=== PATIENT | female | born 1965 | race African-American/Black ===

== ENCOUNTER 2020-08-26 09:32 | Inpatient (IN) ==
[2020-08-26] MEDS ORDERED: SODIUM CHLORIDE 0.9% 1,000 ML IV STA ×2 (10:06→11:21)
[2020-08-26 10:14] LABS: Basophils % 0.3 % (0.0-0.8); Hematocrit 49.7 VOL% (35.7-47.0); Hemoglobin 15.9 GM/DL (12.0-16.0); Immature Granulocytes % 0.8 %; Immature Granulocytes Absolute 0.11 #; Lymphocytes # 0.7 10*3/uL (1.4-4.0); Lymphocytes % 5.7 % (21.3-54.2); Mean Corpuscular Volume 80.6 FL (87-102); Mean Platelet Volume 8.9 FL (9.6-12.0); Monocytes % 8.2 % (1.7-12.7); NRBC # 0.03 10*3/uL; Platelet Count 327 T/CUMM (130-400); Red Blood Count 6.17 MC/CUMM (3.8-5.5); Red Cell Distribution Width 14.1 % (9.3-17.3)
[2020-08-26 10:39] LABS: Alanine Aminotransferase 21 U/L (13-56); Albumin 4.3 G/DL (3.4-5.0); Alkaline Phosphatase 166 U/L (45-117); Aspartate Amino Transferase 8 U/L (0-37); Blood Urea Nitrogen 46 MG/DL (7-18); Calcium 9.4 MG/DL (8.5-10.1); Estimated Glom Filtration Rate 39 ML/MIN; Osmolality,Calculated 302.4 MOS/KG (273-304); Total Protein 8.5 G/DL (6.4-8.3)
[2020-08-26] MEDS ORDERED: INSULIN REGULAR 100 UNIT/ML IV ONE (10:39)
[2020-08-26 10:41] LABS: Glucose 554 MG/DL (74-106)
[2020-08-26 10:56] LABS: Amorphous Crystals,Urine Occasional /HPF (Few); Bilirubin,Urine Negative (Negative); Blood, Urine Moderate mg/dL (Negative); Glucose,Urine (UA) >=500 mg/dL (Negative); Hyaline Casts,Urine 1 /LPF (0-3); Ketones,Urine 80 mg/dL (Negative); Mucus,Urine Occasional /LPF (Occasional); Nitrite,Urine Negative (Negative); Protein,Urine 30 MG/DL; RBC,Urine <1 /HPF (0-4); Squamous Epithelial Cell,Urine Occasional /HPF (0-10); Urine Appearance Slightly Hazy (Clear); Urine Color Yellow (Yellow); Urine Specific Gravity 1.017 (1.001-1.035); Urine Urobilinogen < 2.0 EU/DL (0.2-1.0)
[2020-08-26] MEDS ORDERED: ALBUTEROL 2.5 MG/3 ML NEB RESP TX PRN (12:29)
[2020-08-26] MEDS ORDERED: FAMOTIDINE 20 MG/2 ML VIAL IV SCH (12:30)
[2020-08-26] MEDS ORDERED: SODIUM CHLORIDE 0.9% IV PRN (12:31)
[2020-08-26] MEDS ORDERED: MAGNESIUM SULF RIDER 4 GM in PREMIX 1 EACH IV PRN (12:31)
[2020-08-26] MEDS ORDERED: SODIUM CHLORIDE 0.9% 1,000 ML IV ONE (12:31)
[2020-08-26] MEDS ORDERED: MAGNESIUM SULF RIDER 2 GM in PREMIX 1 EACH IV PRN (12:31)
[2020-08-26] MEDS ORDERED: SODIUM BICARB INJ 100 MEQ in STERILE WATER INJ 400 ML IV PRN (12:31)
[2020-08-26] MEDS ORDERED: SODIUM PHOSPHATE IV PRN (12:31)
[2020-08-26] MEDS ORDERED: DEXTROSE 50% 25 GM/50 ML VIAL IV PRN ×2 (12:31)
[2020-08-26 12:51] LABS: ABG Base Excess -25.2 MMOL/L (-2.5-2.5); ABG HCO3 7.8 MMOL/L (20-26); ABG Oxygen Saturation 98.8 % (95-100); ABG TCO2 3.7 MMOL/L (23-27)
[2020-08-26 12:53] LABS: ABG PCO2 12.5 MM HG (35-48); ABG PH 7.119 (7.35-7.45)
[2020-08-26 13:08] LABS: Ferritin 1015.2 ng/ml (8-252)
[2020-08-26] MEDS ORDERED: INSULIN REGULAR DRIP 100 ML IV SCH (13:30)
[2020-08-26] MEDS: ENOXAPARIN 40 MG/0.4 ML SYRINGE SUBCUT SCH (13:37)
[2020-08-26] MEDS: metroNIDAZOLE INJ 500 MG in PREMIX 1 EACH IV SCH (13:43)
[2020-08-26] MEDS: SODIUM CHLORIDE 0.9% 1,000 ML IV SCH ×2 (13:44→15:39)
[2020-08-26 13:48] LABS: Calcium 8.8 MG/DL (8.5-10.1)
[2020-08-26] MEDS ORDERED: cefTRIAXone 1,000 MG in SYRINGE 1 EACH IV SCH (14:00)
[2020-08-26 15:25] LABS: ABG Oxygen Saturation 98.3 % (95-100)
[2020-08-26 15:28] LABS: ABG PCO2 11.2 MM HG (35-48); ABG PH 7.078 (7.35-7.45)
[2020-08-26] MEDS ORDERED: SODIUM CHLORIDE 0.9% 1,000 ML IV SCH (15:30)
[2020-08-26] MEDS ORDERED: SODIUM BICARBONATE 10 MEQ/10 ML SYRINGE IV ONE (15:41)
[2020-08-26] MEDS ORDERED: SODIUM BICARBONATE 50 MEQ/50 ML VIAL IV ONE (15:45)
[2020-08-26] MEDS ORDERED: SODIUM BICARB INJ 50 MEQ in SODIUM CHLORIDE 0.45% 1,000 ML IV SCH (16:30)
[2020-08-26 17:21] LABS: ABG Base Excess -18.5 MMOL/L (-2.5-2.5); ABG HCO3 11.2 MMOL/L (20-26); ABG Oxygen Saturation 99.3 % (95-100); ABG TCO2 6.5 MMOL/L (23-27); Allen Test Positive; Pt O2 Delivery Device Room Air
[2020-08-26 17:26] LABS: ABG PH 7.262 (7.35-7.45)
[2020-08-26 17:27] LABS: ABG PCO2 16.3 MM HG (35-48)
[2020-08-26 17:37] LABS: Calcium 8.4 MG/DL (8.5-10.1); Osmolality,Calculated 303.8 MOS/KG (273-304)
[2020-08-26 20:14] LABS: ABG HCO3 17.3 MMOL/L (20-26); ABG Oxygen Saturation 99.1 % (95-100); ABG PCO2 26.4 MM HG (35-48); ABG PH 7.362 (7.35-7.45); ABG TCO2 13.1 MMOL/L (23-27)
[2020-08-26] MEDS: ASCORBIC ACID 500 MG TABLET PO SCH (20:50)
[2020-08-26 21:20] LABS: Calcium 8.6 MG/DL (8.5-10.1); Osmolality,Calculated 297.4 MOS/KG (273-304)
[2020-08-27] MEDS: metroNIDAZOLE INJ 500 MG in PREMIX 1 EACH IV SCH ×2 (02:54→12:15)
[2020-08-27 03:23] LABS: Basophils % 0.1 % (0.0-0.8); Hematocrit 38.4 VOL% (35.7-47.0); Hemoglobin 12.8 GM/DL (12.0-16.0); Immature Granulocytes % 0.4 %; Immature Granulocytes Absolute 0.04 #; Lymphocytes # 1.2 10*3/uL (1.4-4.0); Lymphocytes % 11.6 % (21.3-54.2); Mean Corpuscular HGB Conc 33.3 GM/DL (32-36); Mean Corpuscular Volume 77.6 FL (87-102); Mean Platelet Volume 9.2 FL (9.6-12.0); Monocytes % 13.6 % (1.7-12.7); Neutrophils % 74.3 % (38.7-73.9); Platelet Count 246 T/CUMM (130-400); Red Blood Count 4.95 MC/CUMM (3.8-5.5); Red Cell Distribution Width 13.8 % (9.3-17.3); White Blood Count 10.7 T/CUMM (4-12)
[2020-08-27 04:00] LABS: Albumin 3.3 G/DL (3.4-5.0); Bilirubin,Total 0.7 MG/DL (0.2-1.0); Calcium 8.7 MG/DL (8.5-10.1); Osmolality,Calculated 300.8 MOS/KG (273-304); Total Protein 6.6 G/DL (6.4-8.3)
[2020-08-27 04:49] LABS: ABG Base Excess -16.3 MMOL/L (-2.5-2.5); ABG Oxygen Saturation 98.1 % (95-100); ABG PH 7.281 (7.35-7.45); ABG PO2 113.8 MM HG (80-95); ABG TCO2 8.5 MMOL/L (23-27)
[2020-08-27 04:51] LABS: ABG PCO2 17.3 MM HG (35-48)
[2020-08-27] MEDS ORDERED: INSULIN REGULAR DRIP 100 ML IV STA (04:54)
[2020-08-27] MEDS: INSULIN REGULAR DRIP 100 ML IV SCH ×2 (05:09→10:22)
[2020-08-27] MEDS ORDERED: SODIUM CHLORIDE 0.45% 1,000 ML IV SCH (05:32)
[2020-08-27] MEDS ORDERED: LACTATED RINGERS 2,000 ML IV ONE (07:44)
[2020-08-27 08:41] LABS: Calcium 9.2 MG/DL (8.5-10.1); Osmolality,Calculated 306.1 MOS/KG (273-304)
[2020-08-27] MEDS: DEXTROSE 5% NACL 0.45% 1,000 ML IV SCH ×2 (09:23→19:35)
[2020-08-27] MEDS ORDERED: DEXTROSE 5% NACL 0.45% 1,000 ML IV SCH (09:30)
[2020-08-27] MEDS ORDERED: DEXTROSE 5% NACL 0.9% 1,000 ML IV SCH (09:30)
[2020-08-27] MEDS ORDERED: POTASSIUM PHOSPHATE 30 MMOL in SODIUM CHLORIDE 0.9% 250 ML IV ONE (10:00)
[2020-08-27] MEDS: AZITHROMYCIN 250 MG TABLET PO SCH (10:10)
[2020-08-27] MEDS: ASCORBIC ACID 500 MG TABLET PO SCH ×2 (10:10→21:30)
[2020-08-27] MEDS: FAMOTIDINE 20 MG/2 ML VIAL IV SCH (10:10)
[2020-08-27] MEDS: CHOLECALCIFEROL 1,000 UNIT TABLET PO SCH (10:10)
[2020-08-27] MEDS: ZINC GLUCONATE 50 MG TABLET PO SCH (10:10)
[2020-08-27] MEDS: POTASSIUM CHLORIDE RIDER 10 MEQ in PREMIX 1 EACH IV PRN ×4 (10:30→14:25)
[2020-08-27 12:03] LABS: Calcium 8.7 MG/DL (8.5-10.1); Osmolality,Calculated 300.3 MOS/KG (273-304)
[2020-08-27] MEDS: ENOXAPARIN 40 MG/0.4 ML SYRINGE SUBCUT SCH (12:13)
[2020-08-27] MEDS: ONDANSETRON 4 MG/2 ML VIAL IV PRN ×2 (13:10→14:51)
[2020-08-27] MEDS ORDERED: PROMETHAZINE 25 MG TABLET PO PRN (14:43)
[2020-08-27] MEDS ORDERED: cefTRIAXone 1,000 MG in SYRINGE 1 EACH IV SCH (15:00)
[2020-08-27 15:35] LABS: Calcium 8.5 MG/DL (8.5-10.1); Osmolality,Calculated 290.8 MOS/KG (273-304)
[2020-08-27] MEDS ORDERED: ONDANSETRON 4 MG/2 ML VIAL IV ONE (16:47)
[2020-08-27 19:45] LABS: Calcium 8.4 MG/DL (8.5-10.1)
[2020-08-28 00:03] LABS: Calcium 8.8 MG/DL (8.5-10.1); Osmolality,Calculated 288.8 MOS/KG (273-304)
[2020-08-28] MEDS: POTASSIUM CHLORIDE RIDER 10 MEQ in PREMIX 1 EACH IV PRN ×7 (00:20→11:41)
[2020-08-28] MEDS: metroNIDAZOLE INJ 500 MG in PREMIX 1 EACH IV SCH ×2 (00:41→13:36)
[2020-08-28] MEDS: DEXTROSE 5% NACL 0.45% 1,000 ML IV SCH (05:58)
[2020-08-28] MEDS: INSULIN REGULAR DRIP 100 ML IV SCH (05:58)
[2020-08-28 06:35] LABS: Calcium 8.5 MG/DL (8.5-10.1)
[2020-08-28] MEDS ORDERED: POTASSIUM CHLORIDE 20 MEQ/15 ML UDCUP PER TUBE PRN (07:15)
[2020-08-28] MEDS: FAMOTIDINE 20 MG/2 ML VIAL IV SCH (09:38)
[2020-08-28] MEDS: ONDANSETRON 4 MG/2 ML VIAL IV PRN (10:22)
[2020-08-28] MEDS: ZINC GLUCONATE 50 MG TABLET PO SCH (10:22)
[2020-08-28] MEDS: CHOLECALCIFEROL 1,000 UNIT TABLET PO SCH (10:22)
[2020-08-28] MEDS: AZITHROMYCIN 250 MG TABLET PO SCH (10:23)
[2020-08-28] MEDS: ASCORBIC ACID 500 MG TABLET PO SCH ×2 (10:23→21:20)
[2020-08-28 13:03] LABS: Calcium 8.5 MG/DL (8.5-10.1); Osmolality,Calculated 282.3 MOS/KG (273-304)
[2020-08-28] MEDS ORDERED: DEXTROSE 50% 25 GM/50 ML VIAL IV PRN ×2 (13:26→13:27)
[2020-08-28] MEDS ORDERED: GLUCAGON 1 MG VIAL IM PRN ×2 (13:26→13:27)
[2020-08-28] MEDS: ENOXAPARIN 40 MG/0.4 ML SYRINGE SUBCUT SCH (13:37)
[2020-08-28] MEDS: INSULIN GLARGINE 100 UNIT/ML SUBCUT SCH ×2 (13:41→21:20)
[2020-08-28] MEDS ORDERED: POTASSIUM CHLORIDE 20 MEQ TABLET PO ONE (13:52)
[2020-08-28] MEDS: SODIUM CHLORIDE 0.9% 1,000 ML IV SCH (13:52)
[2020-08-28] MEDS ORDERED: MAGNESIUM SULF RIDER 2 GM in PREMIX 1 EACH IV ONE (13:53)
[2020-08-28] MEDS: AMOXICILLIN/CLAV 875 MG TABLET PO SCH (14:59)
[2020-08-28] MEDS: POTASSIUM CHLORIDE 20 MEQ TABLET PO PRN ×3 (15:00→21:21)
[2020-08-28] MEDS: INSULIN REGULAR 100 UNIT/ML SUBCUT SCH ×2 (17:20→21:20)
[2020-08-29] MEDS: AMOXICILLIN/CLAV 875 MG TABLET PO SCH ×2 (02:35→13:52)
[2020-08-29] MEDS: SODIUM CHLORIDE 0.9% 1,000 ML IV SCH ×2 (04:14→20:45)
[2020-08-29] MEDS: INSULIN REGULAR 100 UNIT/ML SUBCUT SCH ×4 (09:35→20:40)
[2020-08-29] MEDS: INSULIN GLARGINE 100 UNIT/ML SUBCUT SCH ×2 (09:35→20:40)
[2020-08-29] MEDS: ZINC GLUCONATE 50 MG TABLET PO SCH (09:36)
[2020-08-29] MEDS: CHOLECALCIFEROL 1,000 UNIT TABLET PO SCH (09:36)
[2020-08-29] MEDS: ASCORBIC ACID 500 MG TABLET PO SCH ×2 (09:37→20:39)
[2020-08-29] MEDS: FAMOTIDINE 20 MG/2 ML VIAL IV SCH (09:37)
[2020-08-29 10:26] LABS: Basophils % 0.3 % (0.0-0.8); Eosinophils % 0.3 % (0.00-10.9); Hemoglobin 11.9 GM/DL (12.0-16.0); Immature Granulocytes % 0.5 %; Immature Granulocytes Absolute 0.04 #; Lymphocytes # 1.8 10*3/uL (1.4-4.0); Mean Corpuscular Volume 76.9 FL (87-102); Monocytes % 9.7 % (1.7-12.7); Neutrophils % 69.2 % (38.7-73.9); Platelet Count 191 T/CUMM (130-400); Red Blood Count 4.55 MC/CUMM (3.8-5.5); White Blood Count 8.8 T/CUMM (4-12)
[2020-08-29 10:38] LABS: Calcium 8.6 MG/DL (8.5-10.1); Osmolality,Calculated 282.5 MOS/KG (273-304)
[2020-08-29] MEDS: ENOXAPARIN 40 MG/0.4 ML SYRINGE SUBCUT SCH (12:59)
[2020-08-29] MEDS: metFORMIN 500 MG TABLET PO SCH ×2 (13:52→20:39)
[2020-08-29] MEDS: ACETAMINOPHEN 325 MG TABLET PO PRN ×2 (16:50→20:44)
[2020-08-30] MEDS: AMOXICILLIN/CLAV 875 MG TABLET PO SCH (01:37)
[2020-08-30 06:12] LABS: Basophils % 0.3 % (0.0-0.8); Eosinophils # 0.1 10*3/uL (0.0-0.87); Eosinophils % 0.9 % (0.00-10.9); Hematocrit 30.8 VOL% (35.7-47.0); Hemoglobin 10.5 GM/DL (12.0-16.0); Immature Granulocytes % 0.7 %; Immature Granulocytes Absolute 0.05 #; Lymphocytes # 1.8 10*3/uL (1.4-4.0); Lymphocytes % 24.2 % (21.3-54.2); Mean Corpuscular HGB Conc 34.1 GM/DL (32-36); Mean Platelet Volume 10.3 FL (9.6-12.0); Monocytes % 10.4 % (1.7-12.7); Neutrophils % 63.5 % (38.7-73.9); Platelet Count 181 T/CUMM (130-400); Red Cell Distribution Width 13.8 % (9.3-17.3); White Blood Count 7.6 T/CUMM (4-12)
[2020-08-30 06:32] LABS: Calcium 8.6 MG/DL (8.5-10.1); Osmolality,Calculated 279.4 MOS/KG (273-304)
[2020-08-30] MEDS: INSULIN REGULAR 100 UNIT/ML SUBCUT SCH ×2 (08:20→12:41)
[2020-08-30] MEDS: metFORMIN 500 MG TABLET PO SCH (09:50)
[2020-08-30] MEDS: ASCORBIC ACID 500 MG TABLET PO SCH (09:50)
[2020-08-30] MEDS: CHOLECALCIFEROL 1,000 UNIT TABLET PO SCH (09:50)
[2020-08-30] MEDS: FAMOTIDINE 20 MG/2 ML VIAL IV SCH (09:50)
[2020-08-30] MEDS: ZINC GLUCONATE 50 MG TABLET PO SCH (09:50)
[2020-08-30] MEDS: INSULIN GLARGINE 100 UNIT/ML SUBCUT SCH (09:50)
[2020-08-30] MEDS: POTASSIUM CHLORIDE 20 MEQ TABLET PO PRN ×2 (09:50→12:20)
[2020-08-30] MEDS: SODIUM CHLORIDE 0.9% 1,000 ML IV SCH (11:16)
[2020-08-30 12:32] VITALS: BP 116/55
[2020-08-30] MEDS: ENOXAPARIN 40 MG/0.4 ML SYRINGE SUBCUT SCH (13:47)
== END 2020-08-30 14:00 | disposition home or self-care (01) | DRG 637 ==
LOC: EDUNIT# → N.ED 09:32 → SUATTDRO 12:29 → N.EDINP 12:29 → N.ICU 08-27 08:42 → N.5E 08-29 15:47
PROVIDERS: ADMIT Internal Medicine; ATTEND Internal Medicine